=== PATIENT | female | born 2000 | race Caucasian/White ===

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

== ENCOUNTER 2018-06-05 16:29 | Emergency (ER) | payer OTHER ==
[~2018-06-05] VITALS: Ht 157.5 cm; Wt 81.8 kg
[2018-06-05 17:23] VITALS: BP 121/78
== END 2018-06-05 17:25 | disposition home or self-care (01) ==
LOC: EMS 16:50
DX: N39.0 Urinary tract infection, site not specified (principal)
CPT/HCPCS: 99283

== ENCOUNTER 2018-08-25 23:09 | Emergency (ER) | payer OTHER ==
[~2018-08-25] VITALS: Ht 157.5 cm; Wt 81.2 kg
[2018-08-26] MEDS: METOCLOPRAMIDE HCL 10 MG TABLET PO ONE (02:50)
[2018-08-26 04:27] VITALS: BP 120/79
== END 2018-08-26 05:06 | disposition home or self-care (01) ==
LOC: EMS 23:10
DX: R51 Headache (principal); J32.3 Chronic sphenoidal sinusitis
CPT/HCPCS: 70450